=== PATIENT | female | born 1930 | race Caucasian/White ===

== ENCOUNTER 2016-11-15 10:49 | Emergency (ER) | payer OTHER, MEDICARE ==
[2016-11-15 11:10] VITALS: BP 156/78
--- NOTE | 2016-11-15 13:12 | CT SCAN REPORT ---
EXAMINATION: CT HEAD WITHOUT CONTRAST CLINICAL INFORMATION: Unwitnessed fall. Evaluate for intracranial hemorrhage. COMPARISON: None TECHNIQUE: Contiguous axial imaging was performed from the skull base to vertex without intravenous administration of contrast. DLP: 539.39 mGy-cm FINDINGS: There is no evidence of acute intracranial hemorrhage or territorial infarction. No abnormal mass effect or midline shift is seen. Norton to white matter differentiation is well preserved. No extra-axial fluid collections are identified. Minimal sulcal and ventricular enlargement is seen consistent with age-related changes. There is no abnormal attenuation within the brain parenchyma. The osseous structures and soft tissues are normal. The patient is status post right ocular lens extraction with implant placement. The mastoid air cells and visualized portions of the paranasal sinuses are well aerated. IMPRESSION: No acute intracranial pathology. No evidence of intracranial hemorrhage.
--- NOTE | 2016-11-15 13:38 | ED MVC/FALL/TRAUMA COMPLAINT ---
History of Present Illness General Chief Complaint: Fall Stated Complaint: BIBA ?FALL Source: patient, family, old records, EMS Exam Limitations: dementia Vital Signs & Intake/Output Vital Signs & Intake/Output Vital Signs Date Time Temp Pulse Resp B/P B/P Pulse O2 O2 Flow FiO2 Mean Ox Delivery Rate 11/15 1110 97.9 88 18 156/78 95 Room Air Allergies Coded Allergies: niacin (UNKNOWN 11/15/16) omeprazole (From PRILOSEC) (UNKNOWN 11/15/16) shellfish derived (UNKNOWN 11/15/16) Uncoded Allergies: COIENE (UNKNOWN 11/15/16) Triage Note: PT BIBA FROM [facility] FOR A MECHANICAL FALL. PER EMS PT HIT HER HEAD. PT NOTED TO BE CONFUSED. PER EMS RECENTLY HAD A LT SHOULDER DISLOCATION WELL. Triage Nurses Notes Reviewed? yes Unable To Obtain Hx Due To: patient confusion Onset: Just prior to arrival Duration: continues in ED, unknown duration Timing: recent history Severity: mild Injuries/Fall Location: head, upper extremity, pelvis Method of Injury: fall Loss of Consciousness: unsure Modifying Factors: Worsens With: movement, palpation. LMP (ages 10-50): post menopausal : No Patient currently breastfeeds: No HPI: Patient resides at assisted living and was found on the ground after an unwitnessed fall. She complains of left shoulder left elbow pain with possible head strike. There was no fever chills nausea vomiting diarrhea abdominal pain chest pain shortness of breath rash headache dysuria bleeding change in motor sensory function change in bowel bladder habit. Past History Travel History Traveled to [place] past 21 day No Medical History Any Pertinent Medical History? see below for history Neurological: dementia Cardiovascular: hypertension Respiratory: asthma Gastrointestinal: irritable bowel syndrome Renal: NONE Musculoskeletal: rheumatoid arthritis Psychiatric: NONE Endocrine: diabetes Blood Disorders: NONE Cancer(s): NONE HAUNTED HISTORY TOUR GUIDE/Reproductive: NONE Surgical History Surgical History: non-contributory Psychosocial History What is your primary language Algerian Tobacco Use: Never used ETOH Use: denies use Illicit Drug Use: denies illicit drug use Family History Hx Contributory? No Review of Systems Review of Systems Constitutional: Reports: no symptoms. Eyes: Reports: no symptoms. Ears, Nose, Throat, Mouth: Reports: no symptoms. Respiratory: Reports: no symptoms. Cardiovascular: Reports: no symptoms. Gastrointestinal/Abdominal: Reports: no symptoms. Genitourinary: Reports: no symptoms. Musculoskeletal: Reports: see HPI, joint pain. Skin: Reports: no symptoms. Neurological/Psychological: Reports: no symptoms. All Other Systems: Reviewed and Negative Physical Exam Physical Exam General Appearance: well developed/nourished, alert, awake, anxious, mild distress Head: atraumatic, normal appearance Eyes: Bilateral: normal appearance. Ears, Nose, Throat, Mouth: hearing grossly normal, moist mucous membrane Neck: normal inspection, supple, full range of motion, normal alignment Respiratory: normal breath sounds, chest non-tender, no respiratory distress, quiet respiration, lungs clear Cardiovascular: regular rate/rhythm, normal peripheral pulses, norml femoral pulses equa Peripheral Pulses: 4+ carotid (R), 4+ carotid (L) Gastrointestinal: normal bowel sounds, soft, non-tender, no organomegaly Back: normal inspection, normal range of motion Extremities: bony-point tenderness, limited range of motion, no ligament instability Neurologic/Psych: no motor/sensory deficits, awake, alert, oriented x 3, normal gait, normal mood/affect, 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 No Severe Sepsis Present: No Septic Shock Present: No Progress Differential Diagnosis: ext injury, ICH, pelvis injury Plan of Care: Orders Procedure Date/time Status XRY-SHOULDER COMPLETE-LEFT 11/15 1206 Active XRY-AP PELVIS 11/15 120 Active XRY-ELBOW 3 OR MORE VIEWS, L 11/15 1206 Active Diagnostic Imaging: Viewed by Me: Radiology Read, CT Scan. Discussed w/RAD: Radiology Read, CT Scan. Radiology Impression: no acute abnormality, no fracture, no dislocation Departure Departure Time of Disposition: 1443 Disposition: HOME OR SELF CARE Condition: Stable Clinical Impression Primary Impression: Contusion, multiple sites Secondary Impressions: Fall at home Qualifiers: Encounter type: initial encounter Qualified Codes: W19.XXXA - Unspecified fall, initial encounter; Y92.099 - Unspecified place in other non- institutional residence as the place of occurrence of the external cause Referrals: UNKNOWN (PCP/Family) Departure Forms: Customer Survey General Discharge Information
--- NOTE | 2016-11-15 14:24 | RADIOLOGY REPORT ---
EXAMINATION: XR ELBOW, LEFT CLINICAL INFORMATION: Fall, pain COMPARISON: None TECHNIQUE: AP, lateral, and oblique views of the left elbow. FINDINGS: No acute fracture or dislocation of the left elbow. The anterior and posterior distal humeral fat planes are well-maintained without evidence of sizable joint effusion. No radiodense foreign body or soft tissue air. IMPRESSION: No acute fracture or dislocation of the left elbow.
--- NOTE | 2016-11-15 14:26 | RADIOLOGY REPORT ---
EXAMINATION: XR PELVIS CLINICAL INFORMATION: Fall, pain COMPARISON: None TECHNIQUE: AP view of the pelvis. FINDINGS: There is no acute fracture of the pelvic bones. The pelvic ring is intact. Degenerative changes of bilateral hip joints noted without evidence of acute dislocation. Degenerative changes of bilateral SI joints and symphysis pubis also seen. The soft tissue is unremarkable. IMPRESSION: No acute fracture or dislocation of the pelvis.
--- NOTE | 2016-11-15 14:32 | RADIOLOGY REPORT ---
EXAMINATION: XR SHOULDER, LEFT CLINICAL INFORMATION: Fall, pain COMPARISON: None TECHNIQUE: 5 views of the left shoulder. FINDINGS: Demineralized bones, which limits evaluation for acute linear nondisplaced fractures. There are no acute fracture or dislocation of the left shoulder. Glenohumeral and acromioclavicular alignment is anatomic with normal joint space. Soft tissue calcification adjacent to the left humeral head could represent calcific tendinosis. The soft tissue is otherwise unremarkable. IMPRESSION: No acute fracture or dislocation of the left shoulder. AMOS.
== END 2016-11-15 14:48 ==
LOC: ERH 10:49
DX: S40.012A Contusion of left shoulder, initial encounter (principal); S50.02XA Contusion of left elbow, initial encounter; S39.93XA Unspecified injury of pelvis, initial encounter; W19.XXXA Unspecified fall, initial encounter; Y93.9 Activity, unspecified; Y92.129 Unspecified place in nursing home as the place of occurrence of the external cause
CPT/HCPCS: 72170; 73030-LT; 73080-LT